=== PATIENT | female | born 1980 | race Two or more races ===

== ENCOUNTER 2024-02-27 10:12 | Emergency (ER) | payer OTHER ==
[~2024-02-27] VITALS: Ht 165.1 cm; Wt 64.9 kg
[2024-02-27] MEDS ORDERED: ORPHENADRINE CITRATE 30 MG/ML AMPUL IM STA (12:38)
[2024-02-27] MEDS ORDERED: KETOROLAC TROMETHAMINE 60 MG VIAL IM STA (12:39)
[2024-02-27] MEDS ORDERED: ORPHENADRINE CITRATE 30 MG/ML AMPUL ONE (12:46)
[2024-02-27] MEDS ORDERED: KETOROLAC TROMETHAMINE 60 MG VIAL IM ONE (12:46)
[2024-02-27] MEDS ORDERED: ORPHENADRINE CITRATE 100 MG TABLET PO STA (12:58)
[2024-02-27] MEDS ORDERED: TRAMADOL HCL 50 MG TABLET PO SCH (13:00)
== END 2024-02-27 15:30 | disposition home or self-care (01) ==
LOC: ER 10:12
DX: M54.2 Cervicalgia (principal); Z88.8 Allergy status to other drugs, medicaments and biological substances